=== PATIENT | female | born 1955 ===

== ENCOUNTER 2020-07-05 14:15 | Outpatient (CLI) | payer OTHER ==
[~2020-07-05 14:15] MED LIST: NEURONTIN300 MG PO
== END 2020-07-05 14:30 ==
LOC: MAMO-SONO 14:15
DX: Z12.31 Encounter for screening mammogram for malignant neoplasm of breast (principal); N64.59 Other signs and symptoms in breast; N64.4 Mastodynia; R92.0 Mammographic microcalcification found on diagnostic imaging of breast

== ENCOUNTER 2020-07-29 14:32 | Outpatient (CLI) | payer OTHER | END 2020-07-29 14:33 | disposition home or self-care (01) | LOC: NUCLEAR 14:32 | PROVIDERS: ATTEND Obstetrics & Gynecology | DX: M81.0 Age-related osteoporosis without current pathological fracture (principal) ==

== ENCOUNTER 2021-07-06 11:28 | Outpatient (CLI) | payer OTHER ==
[~2021-07-06 11:28] MED LIST changes: +LYRICA50 MG PO
== END 2021-07-06 11:47 | disposition home or self-care (01) ==
LOC: RAD 11:28
PROVIDERS: ATTEND Physical Medicine & Rehabilitation
DX: N63.0 Unspecified lump in unspecified breast (principal); N64.4 Mastodynia; E03.9 Hypothyroidism, unspecified; R10.2 Pelvic and perineal pain
CPT/HCPCS: 72195

== ENCOUNTER 2021-09-08 10:42 | Outpatient (CLI) | payer OTHER | END 2021-09-08 10:48 | disposition home or self-care (01) | LOC: SONOGRAMA 10:42 | PROVIDERS: ATTEND Pathology Anatomic Pathology & Clinical Pathology | DX: E04.2 Nontoxic multinodular goiter (principal) ==

== ENCOUNTER 2021-09-27 11:45 | Outpatient (CLI) | payer OTHER | END 2021-09-27 11:56 | disposition home or self-care (01) | LOC: RAD 11:45 | PROVIDERS: ATTEND Surgery | DX: Z01.811 Encounter for preprocedural respiratory examination (principal) ==

== ENCOUNTER 2022-02-17 10:54 | Outpatient (CLI) | payer OTHER | END 2022-02-17 10:57 | disposition home or self-care (01) | LOC: RAD 10:54 | PROVIDERS: ATTEND Orthopaedic Surgery | DX: R07.9 Chest pain, unspecified (principal) ==

== ENCOUNTER 2022-03-29 12:36 | Outpatient (CLI) | payer OTHER | END 2022-03-29 12:45 | disposition home or self-care (01) | LOC: RAD 12:36 | DX: M25.551 Pain in right hip (principal) ==

== ENCOUNTER 2022-04-10 13:52 | Outpatient (CLI) | payer OTHER | END 2022-04-10 13:58 | disposition home or self-care (01) | LOC: SONOGRAMA 13:52 | PROVIDERS: ATTEND Surgery | DX: D09.3 Carcinoma in situ of thyroid and other endocrine glands (principal) ==

== ENCOUNTER 2022-08-28 13:23 | Outpatient (CLI) | payer OTHER | END 2022-08-28 13:29 | disposition home or self-care (01) | LOC: MAMO-SONO 13:23 | PROVIDERS: ATTEND Obstetrics & Gynecology | DX: Z12.31 Encounter for screening mammogram for malignant neoplasm of breast (principal); N63.0 Unspecified lump in unspecified breast; N64.4 Mastodynia ==

== ENCOUNTER 2023-01-03 13:22 | Outpatient (CLI) | payer OTHER | END 2023-01-03 13:27 | disposition home or self-care (01) | LOC: SONOGRAMA 13:22 | PROVIDERS: ATTEND Surgery | DX: D09.3 Carcinoma in situ of thyroid and other endocrine glands (principal); Z09 Encounter for follow-up examination after completed treatment for conditions other than malignant neoplasm ==

== ENCOUNTER 2023-07-03 13:02 | Outpatient (CLI) | payer OTHER | END 2023-07-03 13:16 | disposition home or self-care (01) | LOC: MRI 13:02 | PROVIDERS: ATTEND Obstetrics & Gynecology | DX: G58.8 Other specified mononeuropathies (principal); N91.2 Amenorrhea, unspecified; E78.5 Hyperlipidemia, unspecified; E34.9 Endocrine disorder, unspecified; N95.1 Menopausal and female climacteric states; E23.6 Other disorders of pituitary gland; R19.00 Intra-abdominal and pelvic swelling, mass and lump, unspecified site; N39.0 Urinary tract infection, site not specified; E55.9 Vitamin D deficiency, unspecified; D51.9 Vitamin B12 deficiency anemia, unspecified; N73.9 Female pelvic inflammatory disease, unspecified; A60.04 Herpesviral vulvovaginitis; K75.9 Inflammatory liver disease, unspecified; R73.9 Hyperglycemia, unspecified; Z20.822 Contact with and (suspected) exposure to COVID-19; A49.3 Mycoplasma infection, unspecified site; J11.1 Influenza due to unidentified influenza virus with other respiratory manifestations | CPT/HCPCS: 72148 ==

== ENCOUNTER → 2023-07-13 | Outpatient (CLI) | payer OTHER | END | disposition home or self-care (01) | LOC: TOM 09:30 | DX: K57.92 Diverticulitis of intestine, part unspecified, without perforation or abscess without bleeding (principal) ==

== ENCOUNTER 2024-01-28 13:48 | Outpatient (CLI) | payer OTHER | END 2024-01-28 13:52 | disposition home or self-care (01) | LOC: SONOGRAMA 13:48 | PROVIDERS: ATTEND Internal Medicine | DX: E04.2 Nontoxic multinodular goiter (principal); R22.1 Localized swelling, mass and lump, neck; C73 Malignant neoplasm of thyroid gland ==

== ENCOUNTER 2024-02-14 09:51 | Outpatient (CLI) | payer OTHER | END 2024-02-14 10:09 | disposition home or self-care (01) | LOC: TOM 09:51 | DX: N95.8 Other specified menopausal and perimenopausal disorders (principal); R31.29 Other microscopic hematuria | CPT/HCPCS: 74178; Q9965 ==

== ENCOUNTER 2024-06-04 12:38 | Outpatient (CLI) | payer OTHER | END 2024-06-04 12:45 | disposition home or self-care (01) | LOC: MAMO-SONO 12:38 | PROVIDERS: ATTEND Obstetrics & Gynecology | DX: N63.0 Unspecified lump in unspecified breast (principal); N64.4 Mastodynia; Z12.31 Encounter for screening mammogram for malignant neoplasm of breast ==

== ENCOUNTER 2024-09-17 13:13 | Outpatient (CLI) | payer OTHER | END 2024-09-17 13:18 | disposition home or self-care (01) | LOC: SONOGRAMA 13:13 | PROVIDERS: ATTEND Internal Medicine | DX: C73 Malignant neoplasm of thyroid gland (principal); E04.2 Nontoxic multinodular goiter ==